=== PATIENT | female | born 1985 | race African-American/Black ===

== ENCOUNTER 2018-05-19 08:15 | Emergency (ER) | payer MEDICAID ==
[~2018-05-19] VITALS: Ht 167.6 cm; Wt 79.0 kg
[2018-05-19] MEDS ORDERED: BIRTH CONTROL (08:34)
[2018-05-19 13:40] VITALS: BP 113/74
== END 2018-05-19 14:22 | disposition home or self-care (01) ==
LOC: ER 08:15
DX: F43.0 Acute stress reaction (principal); R42 Dizziness and giddiness; R00.0 Tachycardia, unspecified; R20.2 Paresthesia of skin; Z63.79 Other stressful life events affecting family and household; Z56.3 Stressful work schedule; R03.0 Elevated blood-pressure reading, without diagnosis of hypertension; F12.90 Cannabis use, unspecified, uncomplicated
CPT/HCPCS: 81025; 82962; 93005; 99283

== ENCOUNTER 2018-08-10 14:21 | Emergency (ER) | payer MEDICAID, OTHER ==
[~2018-08-10] VITALS: Ht 167.6 cm; Wt 80.9 kg
[~2018-08-10 14:21] MED LIST: BIRTH CONTROL
[2018-08-10] MEDS ORDERED: IBUPROFEN 600MG TABLET PO ONE (16:30)
[2018-08-10 16:35] VITALS: BP 113/74
== END 2018-08-10 16:25 | disposition home or self-care (01) ==
LOC: ER 14:21
DX: N76.4 Abscess of vulva (principal); Z98.890 Other specified postprocedural states
CPT/HCPCS: 81025; 99283

== ENCOUNTER 2018-08-12 12:50 | Emergency (ER) | payer OTHER ==
[~2018-08-12] VITALS: Ht 167.6 cm; Wt 80.0 kg
[2018-08-12] MEDS ORDERED: LIDOCAINE HCL 1% 20ML VIAL (Pyxis) INJ INFIL ONE (16:00)
[2018-08-12] MEDS ORDERED: IBUPROFEN 600MG TABLET PO ONE (16:00)
[2018-08-12 17:04] VITALS: BP 124/70
== END 2018-08-12 17:06 | disposition home or self-care (01) ==
LOC: ER 12:50
DX: N75.1 Abscess of Bartholin's gland (principal); Z90.49 Acquired absence of other specified parts of digestive tract
CPT/HCPCS: 10060; 81025; 87070; 87077; 87186; 87205; 99284; J3490

== ENCOUNTER 2019-07-06 04:53 | Emergency (ER) | payer OTHER ==
[~2019-07-06] VITALS: Ht 170.2 cm; Wt 89.0 kg
[2019-07-06 04:58] VITALS: BP 150/82
[2019-07-06 07:29] LABS: CLARITY URINE CLEAR (CLEAR); COLOR URINE YELLOW (YELLOW); KETONES URINE NEGATIVE (NEGATIVE); LEUKOCYTE ESTERASE URINE NEGATIVE (NEGATIVE); NITRITE URINE NEGATIVE (NEGATIVE); OCCULT BLOOD URINE NEGATIVE (NEGATIVE); PROTEIN URINE NEGATIVE (NEGATIVE); SPECIFIC GRAVITY URINE 1.023 (1.005-1.030)
== END 2019-07-06 08:53 | disposition home or self-care (01) ==
LOC: ER 05:20
DX: R00.2 Palpitations (principal); R06.00 Dyspnea, unspecified; R03.0 Elevated blood-pressure reading, without diagnosis of hypertension
CPT/HCPCS: 71045; 81003; 81025; 93005; 99284